=== PATIENT | female | born 1995 | race Caucasian/White ===

== ENCOUNTER 2017-06-01 23:18 | Inpatient (IN) | payer MEDICAID ==
[2017-06-01] MEDS ORDERED: OXYCODONE/APAP 5/325 TAB PO ONE (23:43)
--- NOTE | 2017-06-01 23:47 | EDPHY ---
H & P Stated Complaint: L leg injury "my calf is shattered"; jumped from tree Source: Patient Exam Limitations: No limitations - Personal History LMP (Females 10-55): Now Current Tetanus/Diphtheria Vaccine: Yes - Medical/Surgical History Hx Asthma: No Hx Chronic Respiratory Disease: No Hx Diabetes: No Hx Cardiac Disease: No Hx Renal Disease: No Hx Cirrhosis: No Hx Alcoholism: No Hx HIV/AIDS: No Hx Splenectomy or Spleen Trauma: No Other PMH: PMHx: denies. PSHx: denies - Social History Smoking Status: Current every day smoker Time Seen by Provider: 06/01/17 23:44 HPI/ROS: HPI: This is a 22-year-old female who presents with Chief Complaint: Left leg injury Location: Left lower leg Quality: Injury Duration: Hour prior to arrival Signs and Symptoms: No bleeding, no radiation, no numbness, no weakness, no tingling, no incontinence, + decreased range of motion, + swelling, + pain Timing: Acute Severity: 10 out 10 Context: Patient reports that she was up in the [place] drinking with her friends had and has had approximately 5-6 shots of liquor when she decided to climb a tree. She slipped out of the tree approximately 5 feet in the air and landed directly on her feet. She felt immediate pain in her left lower leg and was unable to weight bear. Her friend drove her to the emergency room. She reports constant severe nonradiating pain. She is able to wiggle all 5 toes. She is currently on her menses. Denies paresthesias. Modifying Factors: No [id number] medications tried and ice pack not applied Comment: ROS: see HPI Constitutional: No fever, no chills, no weight loss Eyes: No blurred vision Respiratory: No shortness of breath, no cough Cardiovascular: No chest pain Gastrointestinal: No nausea, no vomiting no diarrhea Genitourinary: No dysuria Extremities: No myalgias Neurologic: No weakness, no numbness Skin: No rashes Hematologic: No bruising, no bleeding MEDICAL/SURGICAL/SOCIAL HISTORY: Medical history: Generally healthy. Does not take any regular medications. Surgical history: Denies Social history: College student CONSTITUTIONAL: Pleasant talkative young adult white female, girlfriend at bedside, awake and alert, no obvious distress HEENT: Atraumatic and normocephalic, PERRL, EOMI. no globe entrapment, no raccoon eyes. no Zee signs.Tympanic membranes clear. No tympanic membrane rupture. Nares patent; no septal hematoma. Oropharynx clear, no exudate and moist pink mucosa. No malocclusion. no dental trauma. Airway patent. No lymphadenopathy. NECK: supple, no midline tenderness, flexion 45 degrees, extension 45 degrees, right and left lateral flexion 45 degrees. No meningismus. Cardiovascular: Normal S1/S2, regular rate, regular rhythm, without murmur rub or gallop. PULMONARY/CHEST: Symmetrical and nontender. no crepitus. Clear to auscultation bilaterally. Good air movement. No accessory muscle usage. ABDOMEN: Soft, nondistended, nontender, no ecchymosis, no rebound, no guarding , no peritoneal signs, no masses or organomegaly. No CVAT. PELVIC: no pain with rocking; bilateral hips flexion 125 degrees, extension 30 degrees, with no pain internal rotation and no pain external rotation. BACK: No midline tenderness, no paraspinous spasm, deep tendon reflexes 2/2, no pain with straight leg raise EXTREMITIES: 2/2 pulses, KNEE: no effusion, medial and lateral joint line tenderness, full extension to 180, flexion to 120, no pain with varus and valgus exam. LEFT Ankle; Plantar flexion to 50, dorsiflexion to 20. Foot inversion to 35 degree. TIB/FIB: Bruising noted on medial lower portion with tenderness of palpation but no tenting of skin as well as ecchymosis noted lateral upper leg inferior to the knee with tenderness to palpation but no tenting of the skin. Achilles tendon intact. no deformities, no clubbing, no cyanosis or edema. NEUROLOGICAL: no focal neuro deficits. GCS 15. SKIN: Warm and dry, no erythema. no rash. Good capillary refill. (Ela Butcher) Constitutional: Initial Vital Signs Temperature (C) 36.7 C 06/01/17 23:21 Heart Rate 98 06/01/17 23:21 Respiratory Rate 16 06/01/17 23:21 Blood Pressure 131/85 H 06/01/17 23:21 O2 Sat (%) 96 06/01/17 23:21 O2 Delivery Mode Room Air Allergies/Adverse Reactions: No Known Allergies Allergy (Unverified 06/01/17 23:21) Home Medications: Medication Instructions Recorded NK [No Known Home Meds] 06/01/17 Medical Decision Making - Diagnostics Imaging Results: Imaging Impressions Tibia/Fibula X-Ray 06/01/17 23:20 Impression: Comminuted displaced distal tibial and proximal fibular diaphyseal fractures. Procedures: Procedure: Splint placement. A left long leg stirrup splint was applied by the Emergency Room biological science technician. After application of the splint I returned and re-examined the patient. The splint was adequately immobilizing the joint and distal to the splint the patient's circulation and sensation was intact. (Ela Butcher) ED Course/Re-evaluation: Labs, IV medications, tib-fib x-ray, ice pack No signs of neurovascular compromise/tenting of skin/compartment syndrome/ extremities and joints examined above and below area of concern and are neurovascularly intact. X-ray reviewed via PACs and shows distal tibia spiral fracture and proximal fibula spiral fracture with displacement. 0010: ED decision to consult Orthopedics, spoke with Dr. Bain's PA who advised that she will talk to her attending and review the films. Patient placed in stirrup splint to stabilize fracture. 0040: Dr. Bain PA called back and advised that patient will be admitted to Ortho floor, NPO after midnight, pain control, agrees with stirrup splint immobilization and plans for OR in the morning. 0049: Reassessed patient and splint and pain is currently controlled (Ela Butcher) PHYSICIAN DOCUMENTATION: The patient was evaluated and managed by the Physician Collision Estimator. My co- signature indicates that I have reviewed this chart and I agree with the findings and plan of care as documented. I am the secondary supervising physician. I reviewed the patient's x-rays and visited with the patient briefly. I agree with the PAs plan. (Sandra Membreno) Differential Diagnosis: Differential diagnosis includes but is not limited to compound fracture, tibia fracture, fibula fracture, nerve injury, ligament injury. (Ela Butcher) - Data Points Medications Given: Dextrose/Sodium Chloride (D5w 1/2 Ns) 1,000 mls @ 100 mls/hr IV CONT NITA Stop: 11/29/17 00:44 Last Admin: 06/02/17 01:34 MDT Dose: 1,000 mls Morphine Sulfate (Morphine) 1 - 2 mg IVP Q1HR PRN PRN Reason: Pain, Severe Unable to Take PO Stop: 06/12/17 00:58 Last Admin: 06/02/17 07:42 Dose: 2 mg Oxycodone HCl (Oxycodone Ir) 5 mg PO Q4HRS PRN PRN Reason: Pain, Severe Able to Take PO Stop: 06/12/17 01:03 Last Admin: 06/02/17 02:01 Dose: 5 mg Discontinued Medications Morphine Sulfate (Morphine) 4 mg IVP EDNOW ONE Stop: 06/02/17 00:44 Last Admin: 06/02/17 01:24 MDT Dose: 4 mg Oxycodone/Acetaminophen (Percocet 5/325) 2 tab PO EDNOW ONE Stop: 06/01/17 23:44 Last Admin: 06/01/17 23:47 Dose: 2 tab Departure - Departure Dis[facility] Clinical Impression: Fracture of distal end of tibia Qualifiers: Encounter type: initial encounter Fracture type: closed Fracture morphology: unspecified fracture morphology Laterality: left Qualified Code(s): S82.302A - Unspecified fracture of lower end of left tibia, initial encounter for closed fracture Fracture, fibula, proximal Qualifiers: Encounter type: initial encounter Fracture type: closed Fracture morphology: unspecified fracture morphology Laterality: left Qualified Code(s): S82.832A - Other fracture of upper and lower end of left fibula, initial encounter for closed fracture
[2017-06-02] MEDS ORDERED: ceFAZolin 2 GM/SWFI 2 GM/20 ML SYR IVP ONE (00:40)
[2017-06-02] MEDS ORDERED: ONDANSETRON 4 MG/2 ML VIAL IVP PRN (01:03)
[2017-06-02 01:31] LABS: PLATELET COUNT 262 10^3/uL (150-400)
[2017-06-02] MEDS: D5W 1/2 NS 1,000 ML IV SCH ×2 (01:34→10:33)
[2017-06-02] MEDS: oxyCODONE IR 5 MG TAB PO PRN ×3 (02:01→19:42)
--- NOTE | 2017-06-02 08:16 | GHP ---
[f rep st] PREOP HISTORY AND PHYSICAL DATE OF ADMISSION: 06/02/2017 CHIEF COMPLAINT: This 22-year-old female presented to the emergency department last night with left lower leg pain. HISTORY OF PRESENT ILLNESS: The patient was with a friend after drinking what she estimates to be 6 shots of alcohol and then decided to climb a tree. At about 5 feet up, she lost her footing and fell , landing with her left leg on the root, which forcefully twisted it. She also landed with some weig ht on the right leg, but is having no pain in the right leg at this time. She denies pain in the kne es bilaterally, hips, back, or upper extremities. She did not have any impact with her upper extremi ties bilaterally. She denies numbness or tingling of the toes. She has not had any calf pain bilate rally. Her pain has been relatively well controlled with IV morphine. At the time of my exam, she i s requesting more morphine and has not had any in the last few hours. REVIEW OF SYSTEMS: The patient denies any recent fevers, sweats, chills, respiratory infections, gas trointestinal infection. She has otherwise been healthy recently. Review of systems otherwise negat kimberly. PAST MEDICAL HISTORY: The patient states that she is otherwise healthy. PAST SURGICAL HISTORY: None. MEDICATIONS: None. ALLERGIES: To medications none. She has an allergy to cats and dogs. SOCIAL HISTORY: The patient smokes 10 cigarettes per day. She drinks 3 times per week and estimates that she drinks about 7 drinks each time that she does drink. She does not use any other drugs incl uding marijuana. She lives in [place]. PHYSICAL EXAM: GENERAL: The patient is alert, answering questions appropriately. She does appear t o be in mild distress throughout my exam due to pain. HEENT: The patient's head is atraumatic, norm ocephalic. Extraocular movements are intact. Nares are patent. Hearing is grossly normal. Oral mu cosa are dry. NECK: The patient has no cervical spinous tenderness to palpate. No step-offs or def ormities are palpated. Patient has full range of motion of her neck without pain. LUNGS: Respirati ons are easy and nonlabored. CARDIOVASCULAR: Distally pulses are equal in both upper extremities an d the right lower extremity. The left lower extremity the patient has normal capillary refill. Her skin is warm and dry in both lower extremities. NEUROLOGIC: Sensation is intact to all toes on the left lower extremity and the right lower extremity. MUSCULOSKELETAL: Patient's leg is in a long-leg splint for immobilization. She has no tenderness to palpate the left knee or bilateral hips. [place] of the right lower extremity reveals no calcaneus, foot, ankle, tib-fib, knee or hip pain. Carmen alvarez has no pain at the clavicle, shoulders, upper arm, elbows, forearms, wrists or hands with range of motion and palpation. DIAGNOSTIC DATA: X-rays of the left lower leg taken in the ER were reviewed and do show a displaced distal tibia fracture as well as a displaced proximal fibula fracture. ASSESSMENT AND PLAN: The patient was admitted early this morning for pain control prior to her surge ry. She has no evidence of compartment syndrome at this time and is neurovascularly intact. She indra l be taken to the OR for intramedullary nail fixation this morning. In the meantime, she has been ke pt n.p.o. with IV fluids and IV morphine as needed every hour. /[id number]/MODL
[2017-06-02] MEDS ORDERED: ceFAZolin 2 GM/SWFI 20 ML SYR IVP ONE (11:09)
[2017-06-02] MEDS ORDERED: BACITRACIN 50,000 UNITS/10 ML SYR IRR ONE (11:34)
[2017-06-02] MEDS ORDERED: PROPOFOL/EMULSION 500 MG/50 ML BOTTLE IV ONE ×2 (11:34)
[2017-06-02] MEDS ORDERED: fentaNYL 250 MCG/5 ML INJ ONE (11:36)
[2017-06-02] MEDS ORDERED: MIDAZOLAM 2 MG/2 ML VIAL ONE (11:43)
[2017-06-02] MEDS ORDERED: MIDAZOLAM 2 MG/2 ML VIAL IVP ONE (11:44)
--- NOTE | 2017-06-02 11:46 | PDANEPAE ---
ANE History of Present Illness 22 year old woman for tibial nail. ANE Past Medical History - Pulmonary History Hx Oxygen in Use at Home: No Hx Sleep Apnea: No Sleep Apnea Screening Result - Last Documented: Positive - Endocrine History Hx Diabetes: No ANE Review of Systems Review of Systems: ANE Patient History - Allergies Allergies/Adverse Reactions: No Known Allergies Allergy (Unverified 06/01/17 23:21) - Home Medications Home Medications: NK [No Known Home Meds] 06/01/17 [Last Taken Unknown] - NPO status NPO Since - Liquids (Date): 06/02/17 NPO Since - Liquids (Time): 00:00 NPO Since - Solids (Date): 06/02/17 NPO Since - Solids (Time): 00:00 - Smoking Hx Smoking Status: Current every day smoker ANE Labs/Vital Signs - Labs Result Diagrams: 06/02/17 01:15 MST 06/02/17 01:15 MST - Vital Signs Blood Pressure: 104/57 Heart Rate: 84 Respiratory Rate: 18 O2 Sat (%): 95 Height: 175.26 cm Weight: 72.575 kg ANE Physical Exam - Airway Mallampati Score: Class 2 Mouth exam: normal dental/mouth exam - Pulmonary Pulmonary: no respiratory distress - Cardiovascular Cardiovascular: regular rate and rhythym - ASA Status ASA Status: I, E
[2017-06-02] MEDS ORDERED: BUPIVACAINE 0.25% 30 ML SDV ONE (11:53)
[2017-06-02] MEDS ORDERED: LABETALOL HCL 50 MG/10 ML SYR IVP PRN (12:13)
[2017-06-02] MEDS ORDERED: DEXAMETHASONE 4 MG/ML VIAL IVP PRN (12:13)
[2017-06-02] MEDS ORDERED: ALBUTEROL 3 ML DEYVIAL IH PRN (12:13)
[2017-06-02] MEDS ORDERED: METOCLOPRAMIDE 10 MG/2 ML VIAL IVP PRN (12:13)
[2017-06-02] MEDS ORDERED: LR 500 ML IV PRN (12:13)
[2017-06-02] MEDS ORDERED: MEPERIDINE 25 MG/ML SYR IVP PRN (12:13)
[2017-06-02] MEDS ORDERED: ACETAMINOPHEN 500 MG TAB PO PRN (12:13)
[2017-06-02] MEDS ORDERED: NALOXONE HCL 0.4 MG/ML INJ IVP PRN (12:13)
[2017-06-02] MEDS ORDERED: PROMETHAZINE HCL 25 MG/ML INJ IVP PRN (12:13)
[2017-06-02] MEDS ORDERED: NS 500 ML IV PRN (12:13)
[2017-06-02] MEDS ORDERED: HYDROCODONE/APAP 5/325 TAB PO PRN (12:13)
[2017-06-02] MEDS ORDERED: fentaNYL 100 MCG/2 ML INJ ONE (13:37)
[2017-06-02] MEDS ORDERED: HYDROmorphONE/DILAUDID 1 MG/ML INJ ONE (13:38)
--- NOTE | 2017-06-02 13:38 | POSTOPPROG ---
Post Op Note Date of Operation: 06/02/17 Surgeon: Juvencio Bain Anesthesiologist: Zbigniew Anesthesia: LMA Pre-op Diagnosis: Left tibia and fibula fracture Post-op Diagnosis: Same Procedure: IM Nail fixatin left Tibia Findings: Synthes 11mm x 345mm IM nail with Prox interlock x1 and distal x2 Inf/Abcess present in the surg proc area at time of surgery?: No EBL: Minimal Complications: None
[2017-06-02] MEDS: HYDROmorphONE/DILAUDID 1 MG/ML INJ IVP PRN ×4 (13:43→14:25)
[2017-06-02] MEDS: fentaNYL 100 MCG/2 ML INJ IVP PRN ×2 (13:44→13:52)
--- NOTE | 2017-06-02 13:53 | ASMTCMCOM ---
CM Note CM Note Notes: Pt had ORIF w/nailing today on L tib and fib. Pt has had no PT/OT evals yet. C/M to follow for DC needs. Date Signed: 06/02/2017 01:53 PM Electronically Signed By:Jesenia Guzman LCSW
--- NOTE | 2017-06-02 13:58 | POSTANESTH ---
Post Anesthetic Evaluation Respiratory Status: Normal, Stable Level of Consciousness/Mental Status: Can Participate in Eval Pain Control: Adequate, Prn Tx Ordered Nausea/Vomiting Control: Adequate, Prn Tx Ordered Complications Possibly Related to Anesthesia: None Noted
--- NOTE | 2017-06-02 14:37 | GOP ---
[f rep st] OPERATIVE REPORT DATE OF OPERATION: 06/02/2017 SURGEON: Juvencio Bain MD PREOPERATIVE DIAGNOSIS: Left tibial shaft fracture. POSTOPERATIVE DIAGNOSIS: Left tibial shaft fracture. PROCEDURE PERFORMED: Intramedullary nail fixation, left tibia. FINDINGS: A Synthes intramedullary 11 mm titanium nail with 2 distal interlocks and 1 proximal inter lock in the dynamic slot was utilized for internal fixation. DESCRIPTION OF PROCEDURE: After routinely checking the patient's identification, consent, and the diana ccessful induction of LMA general anesthetic, the patient was positioned with the patient's left lowe r extremity position in the Acufex leg crane. The bottom portion of the table was dropped away, and a well leg crane was used for the right lower extremity. The left lower extremity was now prepped and draped in the usual standard fashion. A surgical time-out was completed. I then exsanguinated t he limb with Esmarch wrap, and pneumatic tourniquet previously placed about the proximal left thigh e ncased in the Acufex leg crane, was inflated to 275 mmHg. A longitudinal incision just to the later al side of the patellar tendon was carried sharply through the skin, and then bluntly through the sub cutaneous layer. Hemostasis was secured with electrocautery. I dissected down to the patellar tendo n and the knee retinaculum. I made an incision just to the lateral side of the patellar tendon, thro ugh the patellar retinaculum. I exposed the prepatellar fat pad of the infrapatellar fat pad. I pus hed this posteriorly, and then entered the capsule of the knee anteriorly. I exposed the anterior co rtex of the knee and then used a pointed awl to create a helicopter pilot instructor hole. I passed a guide savannah down the s haft of the tibia, and seated it at the distal physeal scar. I verified this was across the fracture site with 2 planes with a small FluoroScan unit. Satisfied with this, I commenced with reaming. I started with an 8.5 mm end reamer and reamed up to a 12 mm finished ream size. I measured the indwel ling portion of the savannah at 355 mm, and selected a 345 mm length x 11 mm nail. The nail was advanced, and as soon as it passed the fracture site, the guide savannah was removed. I seated this just proximal to the distal physeal scar, and then distally interlocked it x2 transverse screws using small cutdown incisions and a radiolucent drill. I used the FluoroScan unit to verify this was appropriately posi tioned. Satisfied with this, I then attached the retrograde malleting apparatus to the proximal nail , and then retrograde malleted the nail to tighten the fracture gap. Once this was completed, I prox imally interlocked this with the targeting jig in the dynamic screw hole as much as the fracture was distal to the isthmus of the diaphysis of the bone. All screws were visualized in 2 planes, passing through the nail and through both cortices of the bone. All insertion instruments were removed. A 5 mm extension end cap was placed on the insertion site. I then irrigated all wounds thoroughly with normal saline. The subcutaneous layer was closed with 3-0 Vicryl, followed by subcuticular 4-0 Monoc ryl. An entry incision was closed in layers. The patellar retinaculum was closed with 0 Vicryl figu re-of-eight interrupted sutures. The subcutaneous layer was closed with 3-0 Vicryl. The skin was cl osed with subcuticular 4-0 Monocryl, followed by Steri-Strips. 20 cc of 0.25% Marcaine was infiltrat ed around the screw interlocking sites and also at the knee entry site and into the knee itself, for postoperative comfort and assistance in hemostasis. A sterile bulky dressing was applied full-length from ankle to knee. The tourniquet was deflated at 61 minute, and the patient was transferred to [facility] recovery area in excellent condition. She tolerated the procedure well. There were no complicatio ns. INDICATIONS FOR SURGERY: The patient is a 22-year-old, who last night, while intoxicated, climbed a tree and subsequently fell, sustaining the above injury. She was admitted to the hospital overnight, and is brought urgently to the operating room for definitive fracture management. /[id number]/MODL
[2017-06-02] MEDS: ceFAZolin 2 GM/DEXTROSE 100 ML IV SCH (19:45)
--- NOTE | 2017-06-02 19:47 | SOAPPROG ---
SOAP Progress Note Assessment/Plan: Assessment: Post op films show excellent alignment and hardware position. Plan: Pain control, Mobilize with PT, TDWB L LE. 06/02/17 19:45 Objective: Vital Signs Temp Pulse Resp BP Pulse Ox 37 C 56 L 18 128/72 H 90 L 06/02/17 17:45 06/02/17 17:45 06/02/17 17:45 06/02/17 17:45 06/02/17 17:45 Laboratory Results 06/02/17 01:15 [facility] 06/02/17 01:15 [facility] 06/01/17 06/02/17 06/03/17 06:59 05:59 05:59 Intake Total 1500 Output Total 810 Balance 690 ICD10 Worksheet Patient Problems: Problems Problem Status Onset Fracture of distal end of tibia Acute Fracture, fibula, proximal Acute
--- NOTE | 2017-06-02 19:47 | SOAPPROG ---
SOAP Progress Note Assessment/Plan: Assessment: Post op films show excellent alignment and hardware position. Plan: Pain control, Mobilize with PT, TDWB L LE. 06/02/17 19:45 Objective: Vital Signs Temp Pulse Resp BP Pulse Ox 37 C 56 L 18 128/72 H 90 L 06/02/17 17:45 06/02/17 17:45 06/02/17 17:45 06/02/17 17:45 06/02/17 17:45 Laboratory Results 06/02/17 01:15 [facility] 06/02/17 01:15 [facility] 06/01/17 06/02/17 06/03/17 06:59 05:59 05:59 Intake Total 1500 Output Total 810 Balance 690 ICD10 Worksheet Patient Problems: Problems Problem Status Onset Fracture of distal end of tibia Acute Fracture, fibula, proximal Acute
--- NOTE | 2017-06-02 19:47 | SOAPPROG ---
SOAP Progress Note Assessment/Plan: Assessment: Post op films show excellent alignment and hardware position. Plan: Pain control, Mobilize with PT, TDWB L LE. 06/02/17 19:45 Objective: Vital Signs Temp Pulse Resp BP Pulse Ox 37 C 56 L 18 128/72 H 90 L 06/02/17 17:45 06/02/17 17:45 06/02/17 17:45 06/02/17 17:45 06/02/17 17:45 Laboratory Results 06/02/17 01:15 [facility] 06/02/17 01:15 [facility] 06/01/17 06/02/17 06/03/17 06:59 05:59 05:59 Intake Total 1500 Output Total 810 Balance 690 ICD10 Worksheet Patient Problems: Problems Problem Status Onset Fracture of distal end of tibia Acute Fracture, fibula, proximal Acute
[2017-06-03] MEDS: ceFAZolin 2 GM/DEXTROSE 100 ML IV SCH ×2 (04:02→11:10)
--- NOTE | 2017-06-03 07:40 | SOAPPROG ---
SOAP Progress Note Assessment/Plan: Assessment/Plan: Left tib/fib fracture s/p IM nailing of L tibia -Cont PT/OT, pt will remain TDWB of LLE -Cont current PO pain regimen -Cont to encourage ice and elevation as tolerated -Cont contralateral SCDs for VTE mechanical prophylaxis -Cont ASA 325 mg PO daily for VTE chemoprophylaxis -Possible discharge today pending PT/OT approval, and successful PO pain management 06/03/17 07:38 Subjective: Pt seen at bedside, awoken for exam. She reports moderate pain at this time, but does note that she slept well. She does report increased pain when her RLE is dependent. We have discussed that this is normal postoperative with this type of injury. She denies any yeh, dizziness, sob, cp, abd pain, post calf pain contralaterally, or new onset n/t. She also denies any temperature change , pain out of proportion or color change of her RLE. We have discussed the signs and symptoms of acute compartment syndrome today, as well as the benefit of continued ice and elevation. She states she is tolerating her diet and medications well. She has no additional concerns or complaints at this time. Objective: Vital Signs Temp Pulse Resp BP Pulse Ox 36.9 C 90 16 111/55 L 89 L 06/03/17 03:57 06/03/17 03:57 06/03/17 03:57 06/03/17 03:57 06/03/17 03:57 Laboratory Results 06/02/17 01:15 MST 06/02/17 01:15 MST 06/02/17 06/03/17 06/04/17 05:59 05:59 05:59 Intake Total 3500 Output Total 1810 Balance 1690 Pt seen at bedside today, awoken for exam. A&Ox3, appropriate mood and affect. VSS. Non-toxic in appearance, no increased WOB, pleasant and cooperative for exam. Exam of the LLE reveals intact post operative dressings. No surrounding erythema, calor, discharge or induration. Dorsum of foot appears mildly swollen , no ecchymosis. Posterior tibialis and dorsalis pedis pulses are intact and equal compared. Pt is intact to light touch sensation distally, capillary refill <2sec on dorsum of foot. Pt moves toes well, as well as leg at hip and knee. Contralateral post calf NTTP, no palpable vascular cords, neg Sheila's bilat. DNVI BLE. ICD10 Worksheet Patient Problems: Problems Problem Status Onset Fracture of distal end of tibia Acute Fracture, fibula, proximal Acute
--- NOTE | 2017-06-03 10:24 | PDDCSUM ---
Discharge Summary Discharge Summary: DATE OF ADMISSION: 06/01/2017 DATE OF DISCHARGE: 06/04/2017 PREOPERATIVE DIAGNOSIS: Left comminuted and displaced distal tibia and proximal fibula diaphyseal fracture PROCEDURE PERFORMED: Left tibia IM nail fixation performed on 06/02/2017 by Juvencio Bain MD POSTOPERATIVE DIAGNOSIS: Left comminuted and displaced distal tibia and proximal fibula diaphyseal fracture HISTORY OF PRESENT ILLNESS: Yesenia is a pleasant 22 year old female who initially presented to the [facility] ED with a left lower leg injury. She states she was out with friends consuming alcohol when she decided to climb a tree. She then describes a fall from approximately 5 feet, landing on her left leg. Subsequent radiographs showed a comminuted displaced distal tibia fracture and proximal fibula diaphyseal fracture. She was consulted on by Dr. Bain (Suellen Ayers PA-C), who recommended the patient be admitted and prepped for surgical fixation of this injury. HOSPITAL COURSE: The patient was admitted, placed on IV Ancef for antibiotic measure, and taken operating room on 06/03/2017, whereupon she underwent a left tibia IM nail fixation performed by Dr. Bain. There were no intraoperative complications, and the patient was transported to recovery in stable condition. The patient was consulted on by physical and occupational therapy. Her hospital stay was otherwise uneventful. DISCHARGE INSTRUCTIONS: The patient is to remain TDWB of her LLE at all times. Additional discharge instructions are as follows: 1. Pt is to remain TDWB of her LLE, and ambulate with the use of assistive devices at all times. 2. Pt is to keep her incision sites clean and dry at all times, and to keep her dressings intact until follow up. She is also to monitor for signs of infection, including surrounding redness and warmth, significant increases in pain and swelling, as well as streaking. She is also encouraged to monitor for constitutional symptoms such as fevers, chills, nausea or vomiting. She is encouraged to contact the office immediately should any of these occur. 3. Pt is to continue ice and elevation for pain and swelling control as tolerated. 4. Pt is to monitor for signs of acute compartment syndrome. These include but are not limited to: pain out of proportion, distal temperature and/or color change, new onset numbness and tingling, and absence of pulses distally. She is encouraged to contact the office immediately should any of these occur. 5. Pt is to continue her Aspirin 325 mg PO daily for 3 weeks (21 days) postoperatively, to aid in the prevention of development of DVT. 6. Pt is to continue her pain medication, Percocet 5/325, as directed :1-2 tablets PO q4-6hrs PRN for severe pain. Once her pain starts to improve, she is encouraged to wean off of this medication to over the counter Tylenol for pain control. 7. Pt is to avoid smoking or unauthorized NSAID use as these may delay bone healing. 8. Pt is to follow up in office with Dr. Bain 10-14 days postoperatively, or sooner with any additional concerns or complaints. MEDICATIONS UPON DISCHARGE: Percocet 5/325 m-2 tabs PO q 4-6hrs PRN for severe pain ASA 325 m PO daily for 21 days postoperatively for DVT chemoprophylaxis Robaxin as ordered
[2017-06-03] MEDS: OXYCODONE/APAP 5/325 TAB PO PRN ×3 (10:54→22:30)
[2017-06-03] MEDS: ASPIRIN EC 325 MG TAB PO SCH (10:55)
[2017-06-03] MEDS: METHOCARBAMOL 750 MG TAB PO PRN ×3 (10:55→19:53)
--- NOTE | 2017-06-03 13:04 | SOAPPROG ---
SOAP Progress Note Assessment/Plan: Assessment: Doing fine. Plan: Pain control, Mobilize with PT, TDWB L LE. Cam Boot to prevent equinus contracture. 06/02/17 19:45 06/03/17 13:02 Subjective: Pretty sore. Adria and cordell helped Objective: Vital Signs Temp Pulse Resp BP Pulse Ox 37.2 C 70 18 118/69 95 06/03/17 12:00 06/03/17 12:00 06/03/17 12:00 06/03/17 12:00 06/03/17 12:00 Laboratory Results 06/02/17 01:15 MST 06/02/17 01:15 MST 06/02/17 06/03/17 06/04/17 05:59 05:59 05:59 Intake Total 3500 Output Total 1810 Balance 1690 CSM I toes. Dressing dry. Foot swollen. DP and PT pulses normal. Calf Not tense. ICD10 Worksheet Patient Problems: Problems Problem Status Onset Fracture of distal end of tibia Acute Fracture, fibula, proximal Acute
[2017-06-03] MEDS ORDERED: LACTULOSE 20 GM/30 ML UDCUP PO PRN (13:05)
[2017-06-03] MEDS ORDERED: BISACODYL 10 MG SUPP PR PRN (13:05)
[2017-06-03] MEDS ORDERED: POLYETHYLENE GLYCOL 3350 17 GM PKT PO PRN (13:05)
[2017-06-03] MEDS ORDERED: MAGNESIUM HYDROXIDE 30 ML UDCUP PO PRN (13:05)
[2017-06-03] MEDS: oxyCODONE IR 5 MG TAB PO PRN ×2 (13:37→19:53)
[2017-06-03] MEDS: SENNOSIDES/DOCUSATE SODIUM TAB PO SCH ×2 (13:43→19:52)
[2017-06-03] MEDS: diphenhydrAMINE 25 MG CAP PO PRN (22:30)
[2017-06-04] MEDS: oxyCODONE IR 5 MG TAB PO PRN ×2 (00:28→06:12)
[2017-06-04] MEDS: OXYCODONE/APAP 5/325 TAB PO PRN ×3 (03:30→14:36)
[2017-06-04] MEDS: METHOCARBAMOL 750 MG TAB PO PRN ×2 (03:30→09:43)
[2017-06-04] MEDS: diphenhydrAMINE 25 MG CAP PO PRN (06:12)
[2017-06-04 07:42] VITALS: BP 113/53; PULSE 57; RESP 14; TEMP 97.5; O2SAT 89
--- NOTE | 2017-06-04 08:14 | SOAPPROG ---
SOAP Progress Note Assessment/Plan: Assessment/Plan: Left tib/fib fracture s/p IM nailing of L tibia performed by Dr. Bain, POD #2 -Cont PT/OT, pt will remain TDWB of LLE -Cont current PO pain regimen -Cont to encourage ice and elevation as tolerated -Cont contralateral SCDs for VTE mechanical prophylaxis -Cont ASA 325 mg PO daily for VTE chemoprophylaxis -Likely d/c today pending PT/OT approval, and successful PO pain management 06/04/17 08:13 Subjective: Pt seen at bedside. No reports of significant pain at this time, but pt does state she does not feel her pain is significantly improved since yesterday. She notes continued discomfort in dependent positions. She states she is tolerating her medications and diet well. She denies any yeh, sob, cp, abd pain , bilat calf pain, or new onset numbness or tingling. We have discussed discharge criteria, as well as again reviewed the signs and symptoms of acute compartment syndrome. We have reviewed follow up and discharge instructions today. She has no additional concerns or complaints at this time. Objective: Vital Signs Temp Pulse Resp BP Pulse Ox 36.4 C 57 L 14 113/53 L 89 L 06/04/17 07:42 06/04/17 07:42 06/04/17 07:42 06/04/17 07:42 06/04/17 07:42 06/03/17 06/04/17 06/05/17 05:59 05:59 05:59 Intake Total 1400 Balance 1400 Pt seen at bedside today, awoken for exam. A&Ox3, appropriate mood and affect. VSS. Non-toxic in appearance, no increased WOB, pleasant and cooperative for exam. Exam of the LLE reveals intact post operative dressings and walker boot. No surrounding erythema, calor, discharge or induration. Dorsum of foot appears mildly swollen, no ecchymosis. Posterior tibialis and dorsalis pedis pulses are intact and equal compared. Pt is intact to light touch sensation distally, cap refill <2sec on dorsum of foot. Pt moves toes well, as well as leg at hip and knee. Contralateral post calf NTTP, no palpable vascular cords, neg Sheila's bilat. DNVI BLE. ICD10 Worksheet Patient Problems: Problems Problem Status Onset Fracture of distal end of tibia Acute Fracture, fibula, proximal Acute
[2017-06-04] MEDS: ASPIRIN EC 325 MG TAB PO SCH (09:42)
[2017-06-04] MEDS: SENNOSIDES/DOCUSATE SODIUM TAB PO SCH (09:43)
--- NOTE | 2017-06-04 15:10 | ASDISCHSUM ---
Discharge Information Plan Status:Home with No Needs Medically Cleared to Leave: Discharge Date:06/04/2017 02:45 PM CM D/C Disposition:Home, Routine, Self-Care ADT D/C Disposition:Home, Routine, Self-Care Projected Discharge Date:06/04/2017 02:45 PM Transportation at D/C: Discharge Delay Reason: Follow-Up Date:06/04/2017 02:45 PM Discharge Slot: Final Diagnosis: Placement Information Patient Contact Information Contact Name:BUDDY Relationship:Mother Address:[address] Work Phone: City:[facility] Phone: State/Zip Code:[place] [address] Email: Financial Information Financial Class:MD Primary Plan Desc:MEDICAID [facility] [place] IP Primary Plan Number:[id number] Secondary Plan Desc: Secondary Plan Number: Assessment Information [facility] CM Progress Note CM Note CM Note Notes: Pt had ORIF w/nailing today on L tib and fib. Pt has had no PT/OT evals yet. C/M to follow for DC needs. Date Signed: 06/02/2017 01:53 PM Electronically Signed By:Jesenia Guzman LCSW [facility] CM Progress Note CM Note CM Note Notes: Pt medically stable for d/c, no CM d/c needs identified. Date Signed: 06/04/2017 03:10 PM Electronically Signed By:JOEL Purdy Intervention Information
--- NOTE | 2017-06-04 15:10 | ASDISCHSUM ---
Discharge Information Plan Status:Home with No Needs Medically Cleared to Leave: Discharge Date:06/04/2017 02:45 PM CM D/C Disposition:Home, Routine, Self-Care ADT D/C Disposition:Home, Routine, Self-Care Projected Discharge Date:06/04/2017 02:45 PM Transportation at D/C: Discharge Delay Reason: Follow-Up Date:06/04/2017 02:45 PM Discharge Slot: Final Diagnosis: Placement Information Patient Contact Information Contact Name:BUDDY Relationship:Mother Address:[address] Work Phone: City:[facility] Phone: State/Zip Code:[place] [address] Email: Financial Information Financial Class:MD Primary Plan Desc:MEDICAID [facility] [place] IP Primary Plan Number:[id number] Secondary Plan Desc: Secondary Plan Number: Assessment Information [facility] CM Progress Note CM Note CM Note Notes: Pt had ORIF w/nailing today on L tib and fib. Pt has had no PT/OT evals yet. C/M to follow for DC needs. Date Signed: 06/02/2017 01:53 PM Electronically Signed By:Jesenia Guzman LCSW [facility] CM Progress Note CM Note CM Note Notes: Pt medically stable for d/c, no CM d/c needs identified. Date Signed: 06/04/2017 03:10 PM Electronically Signed By:JOEL Purdy Intervention Information
--- NOTE | 2017-06-04 15:10 | ASDISCHSUM ---
Discharge Information Plan Status:Home with No Needs Medically Cleared to Leave: Discharge Date:06/04/2017 02:45 PM CM D/C Disposition:Home, Routine, Self-Care ADT D/C Disposition:Home, Routine, Self-Care Projected Discharge Date:06/04/2017 02:45 PM Transportation at D/C: Discharge Delay Reason: Follow-Up Date:06/04/2017 02:45 PM Discharge Slot: Final Diagnosis: Placement Information Patient Contact Information Contact Name:BUDDY Relationship:Mother Address:[address] Work Phone: City:[facility] Phone: State/Zip Code:[place] [address] Email: Financial Information Financial Class:MD Primary Plan Desc:MEDICAID [facility] [place] IP Primary Plan Number:[id number] Secondary Plan Desc: Secondary Plan Number: Assessment Information [facility] CM Progress Note CM Note CM Note Notes: Pt had ORIF w/nailing today on L tib and fib. Pt has had no PT/OT evals yet. C/M to follow for DC needs. Date Signed: 06/02/2017 01:53 PM Electronically Signed By:Jesenia Guzman LCSW [facility] CM Progress Note CM Note CM Note Notes: Pt medically stable for d/c, no CM d/c needs identified. Date Signed: 06/04/2017 03:10 PM Electronically Signed By:JOEL Purdy Intervention Information
== END 2017-06-04 14:45 | disposition home or self-care (01) | DRG 940 ==
LOC: INTOOBSV 06-02 00:47 → F3N 06-02 01:04 → OBSVTOIN 06-03 16:49
PROVIDERS: ADMIT Orthopaedic Surgery Hand Surgery; ATTEND Orthopaedic Surgery Hand Surgery
PROC: 0QSH06Z Reposition Left Tibia with Intramedullary Internal Fixation Device, Open Approach (ICD-10-PCS; principal; 2017-06-02 09:30)
DX: G89.18 Other acute postprocedural pain (principal); S82.252A Displaced comminuted fracture of shaft of left tibia, initial encounter for closed fracture; R42 Dizziness and giddiness; S82.452A Displaced comminuted fracture of shaft of left fibula, initial encounter for closed fracture; W14.XXXA Fall from tree, initial encounter; Y93.39 Activity, other involving climbing, rappelling and jumping off; Z72.0 Tobacco use
CPT/HCPCS: 97116-GP; 97161-GP; 97165-GO; 97535-GO; C1713; G0378; J0171; J0690; J1170; J1200; J2250; J2405; J2704; J3010